=== PATIENT | male | born 1945 | race Caucasian/White ===

== ENCOUNTER → 2016-08-03 | Day surgery (SDC) | payer MEDICARE, OTHER ==
[~2016-08-03] MED LIST: AMIO200 PO; AMIO200T PO; ASPI1TAB69 PO; ASPI81 PO; ATOR1TAB18 PO; ATOR80TA PO; BUPIVACAINE/EPINEPHRINE 0.25% 50 ML VIAL ONE; CLOP75 PO; DOCU1CAP39 PO; KETOROLAC TROMETHAMINE 30 MG/ML (IVP) VIAL IV PUSH ONE; LACTATED RINGER'S 1000 ML INJ 1,000 ML ONE; LIDOCAINE 1%/EPINEPHrine 1:100,000 SOLN 20 ML VIAL ONE; LORTA5 PO; METO25TA6 PO; MIDAZOLAM HCL 2 MG/2 ML VIAL ONE; NORC5TAB PO; ONDANSETRON HCL 4 MG/2 ML VIAL IV PUSH ONE; PROPOFOL 200 MG/20 ML AMP IV ONE; TAMS0.4C4 PO; TOPR25TA PO; ceFAZolin 2 GM PREMIX 50 ML ONE
--- NOTE | 2016-08-03 17:17 | TN ---
cc: MIGNON RICHMOND M.D. Corrected Copy: 08/04/16 DATE OF SURGERY 08/03/2016 PREOPERATIVE DIAGNOSIS Large left inguinoscrotal hernia. POSTOPERATIVE DIAGNOSIS Large left inguinoscrotal hernia. PROCEDURE Open repair large left inguinoscrotal hernia with mesh. Excision spermatic cord lipoma. SURGEON Dr. Mignon Richmond. ANESTHESIA General. CHIP MIXER Denise Bullock, ENGINEER FIRST ASSISTANT INDICATIONS This pleasant 71-year-old gentleman who has had a large left inguinal hernia for many years. He was cleared from a cardiac standpoint by Dr. Dietz. His hernia has always been able to be reduced. INTRAOPERATIVE FINDINGS Large chronic indirect inguinal hernia sac with incarcerated colon. Moderate-sized spermatic cord lipoma. Hernia sac and spermatic cord excised and discarded. ESTIMATED BLOOD LOSS Less than 5 ml. The surgical procedure was assisted by my nurse practitioner. My ENGINEER FIRST ASSISTANT is presence was necessary throughout the case for adequate visualization of the area of concern. My nurse practitioner assisted me throughout the duration of the procedure and her skill set was medically necessary to complete the procedure. During the surgical case, the cell technician was working at the back table providing appropriate instrumentation to myself and the nurse practitioner who was directly assisting me. DESCRIPTION OF PROCEDURE IN DETAIL The patient identified as Michel Gallegos taken to the operating room and placed in the supine position. Sequential compression devices were placed on bilateral lower extremities. Following induction of adequate general anesthesia the left groin was prepped and draped in usual sterile fashion with Betadine. A time-out procedure was performed. Following completion of time-out procedure to everyone's satisfaction within the room, proposed incision was made with a marking pen, infiltrated with local anesthetic. The incision was carried out with scalpel and dissection continued posteriorly through Moiz's fascia to the level of the external oblique fascia. Small bleeding points were controlled with electrocautery. More local anesthetic was generously placed beneath the external oblique fascial fibers which were opened in their direction using a scalpel and Metzenbaum scissor. The chronic thickened hernia sac and scar tissue around the spermatic cord was gradually released using combination of blunt dissection and sharp dissection. The ilioinguinal nerve branch was left in its normal anatomic position and avoided. Spermatic cord and its contents were from surrounding tissue at the level of pubic tubercle and isolated with a Garfield drain. Posterolaterally was a spermatic cord lipoma as evidenced by herniated fat through the internal inguinal ring and was released from surrounding cord structures in the indirect hernia sac to the level of the internal inguinal ring, cross clamped with a hemostat. Redundant tissue amputated and the fatty tissue ligated space with 2-0 Vicryl suture ligature. The anteromedial surface examined and the hernia sac was from surrounding tissues which took some time due to chronic scarring to ensure that spermatic cord contents including the vas deferens were dissected free of the hernia sac. When this had been completed all way up to the internal inguinal ring the hernia sac was opened and there was incarcerated colon. This was released from the hernia sac using careful dissection and electrocautery. This was then reduced into the peritoneal cavity. The base of the sac was suture ligated with 2-0 Vicryl suture ligature in a pursestring fashion and redundant sac amputated and discarded. The inguinal floor examined. It was weak. A 3 x 6 inch piece of atrium ProLite mesh was brought onto the surgical field. It was cut to appropriate size and sutured in position with interrupted 0 Ethilon sutures placed above and below the pubic tubercle into Elpidio's ligament and the shelving edge of the inguinal ligament inferiorly and laterally and into the internal oblique fascia superiorly and medially. Care was taken to avoid suture placement at the potential anatomic location of the iliohypogastric nerve. Tails were cut into the mesh laterally to allow for passage of spermatic cord. The tails were tucked beneath the external oblique fascial fibers and joined lateral to the spermatic cord taking care not to strangulate the spermatic cord with a single Ethilon suture. Irrigation ensued. There was no evidence of bleeding. Remaining local anesthetic was placed in and around the cord and the surgical field. The external oblique fascial fibers were then closed with running 3-0 Vicryl suture taking care to avoid any underlying nerve branches. 3-0 Vicryl was placed in Moiz fascia, skin was approximated with a running 4-0 Monocryl subcuticular suture. Dressings were applied with Mastisol and one half inch brown Steri-Strips, gauze and Tegaderm. The patient tolerated the procedure without apparent complication. Sponge, needle and instrument counts were correct at the end of the case. MD LUL Watts/LUTHER /2:19 PM /9:51 AM
== END | disposition home or self-care (01) ==
LOC: ESDC 11:49
PROVIDERS: ATTEND Surgery Trauma Surgery
DX: K40.30 Unilateral inguinal hernia, with obstruction, without gangrene, not specified as recurrent (principal); D17.6 Benign lipomatous neoplasm of spermatic cord
CPT/HCPCS: 00830; 49507; 55520; C1781; J0690; J1885; J2250; J2405; J3010; J7120